=== PATIENT | female | born 1955 | race Caucasian/White ===

== ENCOUNTER → 2017-06-01 | Outpatient (CLI) | payer BC | LOC: RAD 12:33 | DX: E04.1 Nontoxic single thyroid nodule (principal) ==

== ENCOUNTER 2019-12-05 11:30 | Outpatient (RCR) | payer BC | END 2019-12-05 12:00 | disposition still patient (30) | LOC: OT 11:30 | DX: S52.021B Displaced fracture of olecranon process without intraarticular extension of right ulna, initial encounter for open fracture type I or II (principal) ==

== ENCOUNTER 2020-01-19 11:30 | Outpatient (RCR) | payer BC | END 2020-03-07 | disposition home or self-care (01) | LOC: OT | DX: S52.101A Unspecified fracture of upper end of right radius, initial encounter for closed fracture (principal); S52.021B Displaced fracture of olecranon process without intraarticular extension of right ulna, initial encounter for open fracture type I or II ==

== ENCOUNTER 2021-07-08 13:53 | Outpatient (RCR) | payer BC | END 2021-08-05 | disposition still patient (30) | LOC: OT | DX: S42.231D 3-part fracture of surgical neck of right humerus, subsequent encounter for fracture with routine healing (principal); X58.XXXD Exposure to other specified factors, subsequent encounter ==

== ENCOUNTER → 2024-02-07 | Outpatient (CLI) | payer BC, MEDICARE | LOC: MAMMO 13:59 | DX: Z12.31 Encounter for screening mammogram for malignant neoplasm of breast (principal); N64.89 Other specified disorders of breast; Z78.0 Asymptomatic menopausal state ==

== ENCOUNTER → 2024-02-15 | Outpatient (CLI) | payer BC, MEDICARE | LOC: MAMMO 07:00 | DX: N63.22 Unspecified lump in the left breast, upper inner quadrant (principal) ==

== ENCOUNTER → 2024-02-22 | Outpatient (CLI) | payer BC, MEDICARE | LOC: MAMMO 08:34 | DX: N63.22 Unspecified lump in the left breast, upper inner quadrant (principal) ==

== ENCOUNTER → 2024-04-20 | Outpatient (CLI) | payer BC, MEDICARE | LOC: MAMMO 14:00 → RAD 14:10 | DX: Z13.820 Encounter for screening for osteoporosis (principal); M81.0 Age-related osteoporosis without current pathological fracture ==